=== PATIENT | male | born 1980 ===

== ENCOUNTER 2019-07-05 12:37 | Outpatient (REF) | payer MEDICAID, SELFPAY ==
[2019-07-05 21:57] LABS: Abs Immature Grans 0.01 k/cumm (0.0-0.09); Absolute Basophil Count 0.01 k/cumm (0.0-0.2); Absolute Eosinophil Count 0.13 k/cumm (0.0-0.7); Absolute Lymphocyte Count 1.42 k/cumm (1.2-3.4); Absolute Monocyte Count 0.45 k/cumm (0.11-0.7); Absolute Neutrophil Count 2.63 k/cumm (1.2-6.7); Basophils % 0.2; Eosinophils % 2.8; HCT 44.4 % (40.0-50.0); HGB 15.3 g/dL (13.5-17.5); Immature Grans % 0.2; Lymphocytes % 30.5; Mean Corp. HGB Concentration 34.5 g/dL (32.0-36.0); Mean Corpuscular Hemoglobin 28.7 pg (27.0-33.0); Mean Corpuscular Volume 83.1 fL (80-95); Mean Platelet Volume 11.2 fL (8.0-11.0); Monocytes % 9.7; Neutrophils % 56.6; Platelet Count 224 x1000/uL (130-400); RBC 5.34 m/cumm (4.50-6.00); RBC Distribution Width 12.6 % (11.8-14.1); White Blood Cell Count 4.65 k/cumm (4.4-10.8)
[2019-07-05 22:17] LABS: Hemoglobin A1C 5.3 % (4.5-6.2)
[2019-07-05 22:35] LABS: AST 18 U/L (15-37); Albumin 4.3 g/dL (3.4-5.0); Alkaline Phosphatase 84 U/L (46-116); Anion Gap 9.5 mmol/L (3-11); BUN 9 mg/dL (7-18); Bilirubin, Total 0.5 mg/dL (0.2-1.0); CO2 27.5 mmol/L (21.0-32.0); CREATININE 1.04 mg/dL (0.70-1.30); Calcium 9.1 mg/dL (8.5-10.1); Calculated LDL 83 mg/dL; Chloride 102 mmol/L (98-107); Cholesterol 124 mg/dL (50-200); Glucose 95 mg/dL (70-100); HDL Cholesterol 35 mg/dL (40-60); Potassium 3.9 mmol/L (3.5-5.1); Sodium 139 mmol/L (136-145); TSH 1.37 uIU/mL (0.36-3.74); Total Protein 7.5 g/dL (6.4-8.2); Triglyceride 34 mg/dL (30-150)
[2019-07-05 22:50] LABS: ALT 37 U/L (16-63); C-Reactive Protein 0.21 mg/dL (0.0-0.3)
[2019-07-05 23:06] LABS: ESR 8 mm/hr (0-15)
[2019-07-08 17:03] LABS: IgA 108 mg/dL (85-499); Interpretation (See Note); Tissue Transglutaminase IgA 1.2 U/mL (<4.0)
== END 2019-07-05 12:57 ==
LOC: NCHCO 12:37
PROVIDERS: PCP Nurse Practitioner Family; Visit Provider Nurse Practitioner Family
DX: R23.3 Spontaneous ecchymoses (principal); R10.9 Unspecified abdominal pain; R19.7 Diarrhea, unspecified
CPT/HCPCS: 80053; 80061; 82784; 83516; 85652; 83036; 84443; 85025; 86140

== ENCOUNTER 2019-09-16 13:35 | Outpatient (REF) | payer MEDICAID, SELFPAY ==
[2019-09-16 21:18] LABS: Anion Gap 10.1 mmol/L (3-11); BUN 10 mg/dL (7-18); CO2 27.9 mmol/L (21.0-32.0); CREATININE 0.92 mg/dL (0.70-1.30); Calcium 9.2 mg/dL (8.5-10.1); Chloride 103 mmol/L (98-107); Glucose 95 mg/dL (74-106); Potassium 4.5 mmol/L (3.5-5.1); Sodium 141 mmol/L (136-145)
== END 2019-09-16 13:55 ==
LOC: NCHCN 13:35
PROVIDERS: PCP Nurse Practitioner Family; Visit Provider Nurse Practitioner Family
DX: R35.0 Frequency of micturition (principal); F11.21 Opioid dependence, in remission
CPT/HCPCS: 80048

== ENCOUNTER 2019-09-20 22:45 | Outpatient (REF) | payer MEDICAID, SELFPAY ==
[2019-09-20 22:59] LABS: Total Volume 4500 ml
[2019-09-20 23:08] LABS: SAMPLE LIPEMIA CHECK 4500 ml; Total Volume 4500 ml
[2019-09-20 23:10] LABS: CLEAVED CELLS 189 mmol/24h (40-220); Creatinine,Urine 22.24 mg/dL; POTASSIUM,URINE RANDOM 18 mmol/L; PROTEIN < 6.0 mg/dL (0.0-11.9); Sodium, Urine 42 mmol/L
[2019-09-21 17:18] LABS: Chloride Urine 24hr 135 mEq/24hrs (110-250)
[2019-09-21 17:22] LABS: Urea Nitrogen Random Urine 168 mg/dL (See Note); Urean Nitrogen Urine 24hr 8 g/24hrs (12-20)
[2019-09-21 17:38] LABS: Osmolality, Urine 173 mOsm/kg (150-1,150)
[2019-09-22 08:53] LABS: Timed Urine Volume 4500 mL
[2019-09-22 09:40] LABS: Timed Urine Volume 4500 mL
== END 2019-09-20 23:05 ==
LOC: NCHCN 22:45
PROVIDERS: PCP Nurse Practitioner Family; Visit Provider Nurse Practitioner Family
DX: R35.0 Frequency of micturition (principal); F11.21 Opioid dependence, in remission
CPT/HCPCS: 83935; 81050; 82436; 82570; 84133; 84155; 84300; 84540

== ENCOUNTER 2019-09-28 08:45 | Outpatient (REF) | payer MEDICAID, SELFPAY ==
[2019-09-29 16:39] LABS: Osmolality, Urine 756 mOsm/kg (150-1,150)
[2019-09-29 16:49] LABS: Osmolality Serum 290 mOsm/kg (275-295)
== END 2019-09-28 09:05 ==
LOC: NCHCN 08:45
PROVIDERS: PCP Nurse Practitioner Family; Visit Provider Nurse Practitioner Family
DX: R35.0 Frequency of micturition (principal)
CPT/HCPCS: 83935; 83930

== ENCOUNTER 2022-07-08 17:43 | Outpatient (REF) | payer MEDICAID, SELFPAY ==
[2022-07-08 22:02] LABS: HCT 44.5 % (40.0-50.0); HGB 14.9 g/dL (13.5-17.5); MCH 28.5 pg (27.0-33.0); MCHC 33.5 % (32.0-36.0); MCV 85 fL (80-95); MPV 10.6 fL (8.0-11.0); Platelet Count 242 10^3/uL (130-400); RBC 5.23 10^6/uL (4.36-5.78); RDW 12.3 % (11.8-14.1); RDW-SD 38.2 fL
[2022-07-08 22:19] LABS: Hemoglobin A1C 5.4 % (<5.7)
[2022-07-08 22:48] LABS: ALT 34 U/L (16-63); AST 25 U/L (15-37); Albumin 4.3 g/dL (3.4-5.0); Alkaline Phosphatase 67 U/L (46-116); Anion Gap 7.8 mmol/L (3-11); BUN 16 mg/dL (7-18); Bilirubin, Total 0.3 mg/dL (0.2-1.0); CO2 29.2 mmol/L (21.0-32.0); CREATININE 0.9 mg/dL (0.70-1.30); Calcium 9.3 mg/dL (8.5-10.1); Chloride 103 mmol/L (98-107); Estimated GFR 109.36 (mL/min/1.73m2); Glucose 104 mg/dL (74-106); Potassium 4.2 mmol/L (3.5-5.1); Sodium 140 mmol/L (136-145); TSH 1.62 uIU/mL (0.36-3.74); Total Protein 7.8 g/dL (6.4-8.2); Vitamin B12 505 pg/mL (193-986)
== END 2022-07-08 17:44 | disposition home or self-care (01) ==
LOC: NCHCN 17:43
PROVIDERS: PCP Nurse Practitioner Family; Visit Provider Nurse Practitioner Family
DX: R20.2 Paresthesia of skin (principal); F11.21 Opioid dependence, in remission; M54.59 Other low back pain; Z13.1 Encounter for screening for diabetes mellitus
CPT/HCPCS: 80053; 85027; 82607; 83036; 84443

== ENCOUNTER 2025-02-17 13:12 | Outpatient (REF) | payer MEDICAID, SELFPAY ==
[2025-02-17 21:03] LABS: HCT 43.5 % (40.0-50.0); HGB 14.5 g/dL (13.5-17.5); MCH 28.9 pg (27.0-33.0); MCHC 33.3 % (32.0-36.0); MCV 87 fL (80-95); MPV 10.5 fL (8.0-11.0); Platelet Count 220 10^3/uL (130-400); RBC 5.01 10^6/uL (4.36-5.78); RDW 12.3 % (11.8-14.1); RDW-SD 39.1 fL
[2025-02-17 21:20] LABS: ALT 33 U/L (16-63); AST 22 U/L (15-37); Albumin 4.3 g/dL (3.4-5.0); Alkaline Phosphatase 80 U/L (46-116); Anion Gap 7.3 mmol/L (3-11); BUN 22 mg/dL (7-18); Bilirubin, Total 0.5 mg/dL (0.2-1.0); CO2 29.7 mmol/L (21.0-32.0); CREATININE 0.8 mg/dL (0.70-1.30); Calcium 9.4 mg/dL (8.5-10.1); Chloride 104 mmol/L (98-107); Estimated GFR 111.92 (mL/min/1.73m2); Glucose 75 mg/dL (74-106); Sodium 141 mmol/L (136-145); Total Protein 7.5 g/dL (6.4-8.2)
[2025-02-17 21:22] LABS: C-Reactive Protein < 0.50 mg/dL (<or=0.5)
[2025-02-17 21:28] LABS: Hemoglobin A1C 5.3 % (<5.7)
[2025-02-17 21:58] LABS: Calculated LDL 68 mg/dL (<100); Cholesterol 132 mg/dL (<200); HDL Cholesterol 58 mg/dL (>or=40); Triglyceride 32 mg/dL (<150); Vitamin B12 609 pg/mL (193-986)
[2025-02-18 18:40] LABS: Folate 5.3 ng/mL (See Note)
== END 2025-02-17 13:13 | disposition home or self-care (01) ==
LOC: NCHCN 13:12
PROVIDERS: PCP Nurse Practitioner Family; Visit Provider Family Medicine
DX: M13.0 Polyarthritis, unspecified (principal); R63.4 Abnormal weight loss; R20.0 Anesthesia of skin; Z13.1 Encounter for screening for diabetes mellitus; Z13.220 Encounter for screening for lipoid disorders
CPT/HCPCS: 80053; 80061; 85027; 82607; 82746; 83036; 86140